=== PATIENT | male | born 1965 | race Hispanic/Latino ===

== ENCOUNTER 2017-01-09 07:30 | Day surgery (SDC) | payer OTHER ==
[2017-01-09 08:19] VITALS: BMI 34.2
[2017-01-09] MEDS ORDERED: Midazolam 2 MG/2 ML VIAL ONE (08:32)
[2017-01-09] MEDS ORDERED: Propofol 10 mg/ml Inj (20 ML) ONE (08:32)
[2017-01-09 09:49] VITALS: TEMP 99.4
[2017-01-09 09:54] VITALS: O2SAT 96
[2017-01-09 10:12] VITALS: BP 95/50; PULSE 73; RESP 16
== END 2017-01-09 10:28 | disposition home or self-care (01) ==
LOC: C.ENDO 07:30
PROVIDERS: ATTEND Internal Medicine Gastroenterology
DX: Z12.11 Encounter for screening for malignant neoplasm of colon (principal); K63.89 Other specified diseases of intestine; D12.0 Benign neoplasm of cecum; K22.10 Ulcer of esophagus without bleeding; K25.9 Gastric ulcer, unspecified as acute or chronic, without hemorrhage or perforation
CPT/HCPCS: 43239; 45380; 88305; J2001; J2250; J2704